=== PATIENT | male | born 2000 | race Hispanic/Latino ===

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

== ENCOUNTER 2024-01-30 09:09 | Emergency (ER) | payer OTHER | END 2024-01-30 09:30 | disposition home or self-care (01) | LOC: NAV ERS 09:09 | DX: S61.012A Laceration without foreign body of left thumb without damage to nail, initial encounter (principal); I10 Essential (primary) hypertension; Z79.899 Other long term (current) drug therapy; W26.8XXA Contact with other sharp object(s), not elsewhere classified, initial encounter | CPT/HCPCS: 12001; 99282 ==

== ENCOUNTER 2024-02-07 11:34 | Emergency (ER) | payer OTHER ==
[2024-02-07] MEDS ORDERED: predniSONE 20 MG TAB ONE (12:02)
== END 2024-02-07 12:21 | disposition home or self-care (01) ==
LOC: NAV ERS 11:34
DX: L23.7 Allergic contact dermatitis due to plants, except food (principal); I10 Essential (primary) hypertension; Z79.899 Other long term (current) drug therapy
CPT/HCPCS: 99282; J7512